=== PATIENT | male | born 1985 | race Two or more races ===

== ENCOUNTER 2018-11-27 19:03 | Emergency (ER) | payer MEDICAID, OTHER ==
[~2018-11-27] VITALS: Ht 177.8 cm; Wt 85.7 kg
[2018-11-27 20:11] LABS: Urine Bacteria NONE SEEN /hpf (None Seen); Urine Blood Negative /uL (Negative); Urine WBC <1 /hpf (0 - 3)
[2018-11-27 20:11] LABS: Basophils # (auto) 0 uL; Basophils % (auto) 0.6 % (0.0-2.0); Eosinophils # (auto) 0.1 uL; Eosinophils % (auto) 0.9 % (0.0-7.0); Hematocrit 47.9 % (41.0-53.0); Hemoglobin 16.5 g/dL (13.5-17.5); Lymphocytes # (auto) 2.6 uL; Lymphocytes % (auto) 38.4 % (10.0-50.0); Mean Corpuscular Hemoglobin 30.7 pg (28.0-32.0); Mean Corpuscular Hgb Conc. 34.4 g/dL (32.0-36.0); Mean Corpuscular Volume 89.3 fL (80.0-100.0); Monocytes # (auto) 0.4 uL; Monocytes % (auto) 6.5 % (0.0-12.0); Neutrophils # (auto) 3.7 uL; Neutrophils % (auto) 53.6 % (37.0-80.0); Nucleated Red Blood Cells % 0.1 %; Platelet Count (auto) 240 10^3/uL (140-450); Red Blood Cells 5.36 10^6/uL (4.5-5.90); Red Cell Distribution Width 12.4 % (11.8-14.3); White Blood Cell 6.8 10^3/uL (4.4-10.8)
[2018-11-27 20:25] LABS: Albumin 4.4 g/dL (3.4-5.0); Anion Gap 6 (5-15); BUN/Creatinine Ratio 7.8; Blood Urea Nitrogen 9 mg/dL (7-18); Carbon Dioxide 27 mmol/L (21-32); Chloride 104 mmol/L (98-107); GFR African American 95 mL/min; GFR Non-African American 78 mL/min; Glucose 125 mg/dL (74-106); INR 0.99 (0.9-1.15); Magnesium 2.4 mg/dL (1.6-2.6); Partial Thromboplastin Time 25.7 sec (23.64-32.05); Potassium 3.7 mmol/L (3.5-5.1); Sodium 137 mmol/L (136-145)
[2018-11-27 20:28] LABS: Alanine Aminotransferase 82 U/L (16-61); Alkaline Phosphatase 58 U/L (45-117); Aspartate Aminotransferase 30 U/L (15-37); Bilirubin, Total 2.3 mg/dL (0.2-1.0); Total Protein 8.3 g/dL (6.4-8.2)
[2018-11-27 20:32] LABS: Amphetamine Screen, Urine NEGATIVE (NEGATIVE); Barbiturate Scree,Urine NEGATIVE (NEGATIVE); Benzodiazephine Screen, Urine NEGATIVE (NEGATIVE); Cannabinoid Screen, Urine NEGATIVE (NEGATIVE); Cocaine Screen, Urine NEGATIVE (NEGATIVE); Opiate Scree,Urine NEGATIVE (NEGATIVE); Phencyclidine Screen, Urine NEGATIVE (NEGATIVE)
[2018-11-27 20:53] LABS: Alcohol, Urine < 3.0 mg/dL (0-5)
[2018-11-27 23:00] VITALS: BP 121/72
[2018-11-27] MEDS: ALBUTEROL SULF 2.5 MG/0.5ML(0.5%) NEB SOLN NEB ONE ×2 (23:20→23:21)
[2018-11-27] MEDS: IPRATROPIUM BROM 0.5 MG/2.5ML INH SOL NEB ONE ×2 (23:20→23:21)
== END 2018-11-27 23:17 | disposition home or self-care (01) ==
LOC: ER 19:11
DX: J98.11 Atelectasis (principal); F41.9 Anxiety disorder, unspecified; J45.909 Unspecified asthma, uncomplicated
CPT/HCPCS: 36415; 71046; 80053; 80307; 81001; 83735; 84443; 84484; 85025; 85610; 85730; 93005

== ENCOUNTER 2023-09-06 08:49 | Emergency (ER) | payer MEDICAID ==
[~2023-09-06] VITALS: Ht 177.8 cm; Wt 101.6 kg
[2023-09-06 09:19] VITALS: BP 146/92; PULSE 110; RESP 18; TEMP 98; O2SAT 98
[2023-09-06] MEDS ORDERED: IBUP-1456 PO (10:00)
[2023-09-06] MEDS ORDERED: CEPH500C PO (10:00)
== END 2023-09-06 10:04 | disposition home or self-care (01) ==
LOC: ER 08:49
DX: S93.402A Sprain of unspecified ligament of left ankle, initial encounter (principal); S30.0XXA Contusion of lower back and pelvis, initial encounter; S80.212A Abrasion, left knee, initial encounter; J45.909 Unspecified asthma, uncomplicated; Z91.09 Other allergy status, other than to drugs and biological substances; V23.49XA Other motorcycle driver injured in collision with car, pick-up truck or van in traffic accident, initial encounter; Y93.55 Activity, bike riding; Y92.89 Other specified places as the place of occurrence of the external cause; Y99.8 Other external cause status
CPT/HCPCS: 73502; 73610